=== PATIENT | male | born 2000 | race Caucasian/White ===

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

== ENCOUNTER 2022-03-08 11:25 | Emergency (ER) | payer OTHER, MEDICAID, SELFPAY ==
[2022-03-08 11:26] VITALS: BP 154/91; PULSE 88; RESP 16; TEMP 36.7; O2SAT 97; BMI 21.4
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
--- NOTE | 2022-03-08 12:28 | CM.ED ---
Per patient reports he has medicare but patient is unreliable historian. SW asked Rupali, in registration, to check to see if patient has insurance. Per Rupali patient has [facility] [place]. Myranda BARRERA
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
[2022-03-08 13:26] LABS: Absolute Lymphocyte Count 2.73 X10^3/uL (0.83-4.51); Absolute Neutrophil Count 5.8 X10^3/uL (2.0-7.7); Basophil# 0.07 X10^3/uL; Basophil% 0.7 % (0-1); Eosinophil# 0.19 X10^3/uL; Hematocrit 44.1 % (40-54); Hemoglobin 15.3 g/dL (13.0-16.5); Lymphocyte # 2.73 X10^3/ul (0.83-4.51); Mean Corp Hgb Conc 34.7 g/dL (32-36); Mean Corpuscular Hgb 28.9 pg (27.0-32.0); Mean Corpuscular Volume 83.2 fL (80-94); Monocyte# 0.56 X10^3/uL; NRBC Flagged by Analyzer 0 % (0-5); Neutrophil # 5.83 X10^3/uL (2.7-7.7); Platelet Count 275 K/mm3 (150-450); RBC Distribution Width CV 12.2 % (11.6-14.6); White Blood Count 9.4 K/mm3 (4.4-11.0)
[2022-03-08 13:37] LABS: Alcohol, Blood (Medical)-Serum < 3.0 mg/dL
[2022-03-08 13:38] LABS: Anion Gap 8 (5-15); BUN 10 mg/dL (7-18); BUN/Creat Ratio 10.7 RATIO (10-20); Calcium,Total 9.7 mg/dL (8.5-10.1); Chloride 107 mmol/L (98-107); Creatinine, Serum 0.94 mg/dL (0.70-1.30); EST Glomerular Filtration Rate 108 mL/min (>60); Est Glom Filt Rate - Afr Amer 131 mL/min (>60); Estimated Creatinine Clearance 100.53 ml/min; Glucose 99 mg/dL (74-106); Potassium 2.8 mmol/L (3.5-5.1); Sodium Level 142 mmol/L (136-145)
[2022-03-08 14:00] LABS: Amphetamine Urine VISTA POSITIVE (<1000 ng/mL); Barbiturate Urine VISTA NEGATIVE (< 200 ng/mL); Benzodiazepine Urine VISTA NEGATIVE (< 200 ng/mL); Cocaine Urine VISTA NEGATIVE (< 300 ng/mL); Ecstacy Urine VISTA POSITIVE (< 500 ng/mL); Methadone Urine VISTA NEGATIVE (< 300 ng/mL); PCP Urine VISTA NEGATIVE (< 25 ng/mL); THC Urine VISTA POSITIVE (< 50 ng/mL); Vista UDS pH Range 6
[2022-03-08] MEDS: Potassium Chloride Oral Tablet 20 MEQ 40 MEQ PO (14:25)
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
--- NOTE | 2022-03-08 14:40 | CM.ED ---
JUSTINA called Nenita, patient's adoptive mother, , and left message with male to have Nenita call Myranda at [facility].,
--- NOTE | 2022-03-08 14:47 | CM.ED ---
JUSTINA faxed referral to [facility]. Of note patient had requested to go to [place]. Both [facility] and [facility] are not accepting outside admissions on this date. Plan: Referral to [facility] Myranda BARRERA
[2022-03-08 15:17] VITALS: BP 138/59; PULSE 67; RESP 15; TEMP 36.2; O2SAT 98
--- NOTE | 2022-03-08 15:18 | ED.RN ---
ATTEMPTED TO CALL REPORT TO [facility], NURSE WAS UNAVAILABLE AND WILL CALL BACK
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
[2022-03-08 16:13] VITALS: BP 138/77; PULSE 92; RESP 16; TEMP 37.3; O2SAT 97
== END 2022-03-08 16:47 ==
PROVIDERS: Emergency Provider Emergency Medicine; PCP Student in an Organized Health Care Education/Training Program; Visit Provider Emergency Medicine
DX: F20.9 Schizophrenia, unspecified (principal); F22 Delusional disorders; R21 Rash and other nonspecific skin eruption; F17.210 Nicotine dependence, cigarettes, uncomplicated; Z79.899 Other long term (current) drug therapy
CPT/HCPCS: 80048; 80307; 82077; 85025; 99282

== ENCOUNTER 2022-05-08 18:19 | Emergency (ER) | payer OTHER, MEDICAID, SELFPAY ==
[2022-05-08 18:20] VITALS: BP 117/76; PULSE 113; RESP 22; TEMP 37.7; O2SAT 95; BMI 21.9
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
[2022-05-08 19:55] LABS: Absolute Lymphocyte Count 1.59 X10^3/uL (0.83-4.51); Absolute Neutrophil Count 12.5 X10^3/uL (2.0-7.7); Basophil# 0.05 X10^3/uL; Basophil% 0.3 % (0-1); Eosinophil# 0.15 X10^3/uL; Hematocrit 43.5 % (40-54); Hemoglobin 14.7 g/dL (13.0-16.5); Lymphocyte # 1.59 X10^3/ul (0.83-4.51); Lymphocyte % 10.4 % (19-41); Mean Corp Hgb Conc 33.8 g/dL (32-36); Mean Corpuscular Hgb 28.6 pg (27.0-32.0); Mean Corpuscular Volume 84.6 fL (80-94); Mean Platelet Vol. 9.9 fl (6.2-12.0); Monocyte# 0.98 X10^3/uL; Monocyte% 6.4 % (0-10); NRBC Flagged by Analyzer 0 % (0-5); Neutrophil # 12.51 X10^3/uL (2.7-7.7); Neutrophil % 81.4 % (47-70); Platelet Count 233 K/mm3 (150-450); RBC Distribution Width CV 12.6 % (11.6-14.6); Red Blood Count 5.14 M/mm3 (4.6-6.2); White Blood Count 15.4 K/mm3 (4.4-11.0)
[2022-05-08 20:08] LABS: Anion Gap 7 (5-15); BUN 12 mg/dL (7-18); BUN/Creat Ratio 14.3 RATIO (10-20); Calcium,Total 9.5 mg/dL (8.5-10.1); Chloride 105 mmol/L (98-107); Creatinine, Serum 0.84 mg/dL (0.70-1.30); EST Glomerular Filtration Rate 122 mL/min (>60); Est Glom Filt Rate - Afr Amer 148 mL/min (>60); Estimated Creatinine Clearance 110.78 ml/min; Glucose 106 mg/dL (74-106); Potassium 4.1 mmol/L (3.5-5.1); Sodium Level 138 mmol/L (136-145)
== END 2022-05-08 21:59 | disposition home or self-care (01) ==
PROVIDERS: Emergency Provider Emergency Medicine; PCP Student in an Organized Health Care Education/Training Program; Visit Provider Emergency Medicine
DX: L03.114 Cellulitis of left upper limb (principal); F17.210 Nicotine dependence, cigarettes, uncomplicated
CPT/HCPCS: 80048; 83605; 85025; 96365; 99283; J7030; J0295